=== PATIENT | male | born 1955 | race Caucasian/White ===

== ENCOUNTER 2023-11-10 14:50 | Observation (INO) | payer BC, MEDICARE, SELFPAY ==
[2023-11-10] VITALS (7 sets, daily range): BP systolic 141–158; BP diastolic 69–87; BMI 31.1; BMI 30.3
--- NOTE | 2023-11-10 08:22 | ED.GENMED ---
History of Present Illness
General
Chief Complaint: Abdominal Pain
Source: patient
Exam Limitations: none
Time Seen by Provider: 11/10/23 08:10
Nursing documentation reviewed up to this point in time: agreed with
History of Present Illness
History of Present Illness:
68 y/o M with h/o HTN, HLD, GERD
no chronic GERD meds
woke up at 3 am with severe dull epigastric pain nonradiating with 3-4 episodes of N/V
no hematemesis, no black stool
denies alcohol use
does take NSAIDS often
never had endoscopy
apparnetly at beg sept he had similar episode
saw his family doctor and was ordered outpatient CT but has not heard from his doctor
he is from [place] here becuase of recent family member's
denies cardiac disease
Past History
Past History
ED Past Medical History: GERD, HTN and Hypercholesterolemia
ED Past Surgical History: None
Social History
Tobacco: Non-smoker
Review of Systems
Review of Systems
Allergies reviewed?: Yes
All Other Systems: Not applicable
Phy Exam
Physical Exam
Physical Exam:
GENERAL: moaning, uncomfortable
EYE: pupils equal and reactive
NECK: Supple
ENT: o/p clr, mmm.
CARDIAC: Regular rate and rhythm .
LUNGS: Clear breath sounds bilaterally, no acute respiratory distress, no wheezes/rales/rhonchi
ABDOMEN: Soft, mild RUQ tenderness; no r/g, no cvat, normal bowel sounds
NEUROLOGICAL: Alert and oriented, no focal neuro deficits
SKIN: Warm and dry, skin intact.
MUSCULOSKELETAL: No edema, well perfused. neg gabo's sign
PSYCH: Normal and appropriate interaction.
Course
Orders/Labs/Results
Orders:
Orders
11/10/23 Breakfast
Low Fat
At Your Request: Full Participation
Does patient need a safe tray?: No
11/10/23 08:17
Electrocardiogram (*1) Urgent
Reason for Study: Abdominal Pain
11/10/23 08:18
EKG- Treatment ONCE
11/10/23 08:20
0.9% Sodium Chloride 1000 ml [Nss] 1,000 ml IV BOLUS
HYDROmorphone [Dilaudid] 1 mg IV NOW STA
Ondansetron Injectable [Zofran] 4 mg IV NOW STA
Pantoprazole [Protonix IV] 40 mg IV NOW STA
11/10/23 08:28
Complete Blood Count/With Diff Urgent
Comprehensive Metabolic Panel Urgent
Lipase Urgent
Magnesium Urgent
Troponin I Urgent
11/10/23 08:56
HYDROmorphone [Dilaudid] 0.5 mg IV NOW STA
US Abdomen Complete/Upper Urgent
Comment:
Reason For Exam: upper abd pain, vomiting; gallstones
11/10/23 10:38
Add On- LAB Urgent
Tests Added?: magnesium
11/10/23 11:37
Ampicillin/Sulbactam 3 G [Unasyn] 3 gm 0.9% Sodium Chloride 100 ml [Nss] 100 ml IV NOW
11/10/23 13:37
Potassium Chloride Powder [Klor-Con] 20 meq PO NOW STA
11/10/23 13:47
Admit Patient As Directed
Co-Sign Provider:
Level of Care: Observation services
Assign to:: Medical/Surgical
Physician / Group: Kenya
Diagnosis: Biliary colic
Code Status As Directed
Resuscitation Status: Full Code
Acetaminophen [Tylenol] 1,000 mg PO Q6HPRN PRN
Ibuprofen [Motrin] 600 mg PO Q6HPRN PRN
Ondansetron Injectable [Zofran] 4 mg IV Q6HPRN PRN
Oxycodone [Roxicodone] 10 mg PO Q4HPRN PRN
Oxycodone [Roxicodone] 5 mg PO Q4HPRN PRN
Activity As Directed
Activity Level: Out of Bed-Early Mobility
Anti-embolism (RUBIO) Hose As Directed
Type: Thigh high
Intake/ Output As Directed
Frequency: Per unit guidelines
Pneumatic Compression Sleeves As Directed
Type: Knee high
Vital Signs As Directed
Frequency: Per unit guidelines
PRN Pain Medication Management As Directed
May give lesser potent ordered pain med per pt: Yes
preference::
Protocol:: Medication orders for pain may be administered in a
manner that supports deferring to patient preference
when the pt is:
- Requesting an ordered lesser potent pain medication.
Least to most potent pain medications are defined
as: acetaminophen < NSAID < tramadol < opioids
(morphine, oxycodone, hydromorphone).
- Requesting a lesser dose of the same medication IF
ORDERED.
- Requesting a less intrusive route of administration
if both routes are prescribed by the provider (PO <
IV).
DX Deep Vein Thrombosis Video Routine
11/10/23 13:48
Rx Incentive Spirometry [RESP] Routine
Frequency: q1h while awake
# of times per hour: 10
11/10/23 14:00
Ampicillin/Sulbactam 1.5 G [Unasyn] 1.5 gm 0.9% Sodium Chloride [Nss] 50 ml IV Q6H
11/10/23 18:00
Enoxaparin Sodium [Lovenox] 40 mg SC QPM
11/11/23 Breakfast
NPO
Allow oral meds: No
Allow clear liquids: No
Basic Metabolic Panel IN AM
Complete Blood Count/No Diff IN AM
Lzyko-Zhnn-Sozdwom IN AM
11/11/23 08:00
Indapamide [Lozol] 2.5 mg PO DAILY
Abnormal Lab Results
11/10/23
08:28
MCV 79.8 L fL
(80.0-94.0)
MPV 10.8 H fL
(7.4-10.4)
Abs Immat Gran (auto) 0.1 H 10^3/uL
(0-0.05)
Absolute Neuts (auto) 8.1 H 10^3/uL
(1.4-6.5)
Neutrophils % 76.6 H %
(42.2-75.2)
Lymphocytes % 16.1 L %
(20.5-51.1)
Potassium 3.1 L mmol/L
(3.5-5.1)
BUN 29 H mg/dl
(9-20)
Glucose 163 H mg/dl
(70-99)
Calcium 10.4 H mg/dl
(8.4-10.2)
11/10/23 08:28
11/10/23 08:28
Vital Signs
Initial and Last Documented VS:
Initial Vital Signs
Temp Pulse Resp BP Pulse Ox
98.2 F 65 18 158/85 100
11/10/23 08:09 11/10/23 08:09 11/10/23 08:09 11/10/23 08:09 11/10/23 08:09
Last Documented Vital Signs
Temp Pulse Resp BP Pulse Ox
98.2 F 69 20 143/80 97
11/10/23 08:09 11/10/23 12:45 11/10/23 14:00 11/10/23 12:00 11/10/23 12:45
MDM/Problems Addressed
Differential Diagnosis Includes:
cholelithiasis/cholecystiis, ACS, pancreatitis, dissection, AAA
MDM/Problems Addressed:
68-year-old male with a history of hypertension and high cholesterol and GERD who is from out of town visiting had sudden onset of severe epigastric pain nonradiating this morning at 3 AM with several episodes of nausea and vomiting. Patient had a
similar event a couple of weeks ago but did not seek medical care immediately. He saw his doctor who ordered an outpatient CT which she was able to pull up on his patient portal and I reviewed that showing that he had cholelithiasis but otherwise a
normal aorta and no other findings other than a lesion on T12 that does need a workup. Patient was aware of this.
On exam the patient appeared dehydrated, was very uncomfortable, tender in his right upper quadrant with a positive Gomes sign, afebrile. His labs show a normal white count and normal LFTs and lipase. Ultrasound shows gallstones with possible
early acute cholecystitis with thickening of the gallbladder wall. He also had a positive Gomes sign.
unasyn
pain is improved but still present
await surgery consult
SURGERY WILL OBS
*Critical Care Note
Total Time (30-74mins, 75-104mins- exclusive of procedures): Not Applicable
ED Attending Note
-
Portions of this chart may have been created with voice recognition software.� Occasional wrong word or��sound alike� substitutions may have occurred due to the inherent limitations of voice recognition software.
Discharge Plan
Departure
Patient Disposition: Admit
Date of Disposition: 11/10/23
Time of Disposition: 13:37
Admit to: Med/Surg
Admit to doctor: kenya
Presentation/result/management discussed w/ accepting MD/DO: kenya
Patient with high blood pressure during this ER visit?: No
Condition: Fair
Covid-19: Not Applicable
Discharge Problem:
Cholelithiasis
Prescriptions:
No Action
indapamide 2.5 mg Tablet
2.5 mg PO DAILY
ibuprofen [Advil Liqui-Gel] 200 mg Capsule
200 mg PO Q6HPRN PRN (Reason: mild pain)
Referrals:
UNKNOWN - PT DOES,NOT KNOW [Family Provider] -
Interventions
Interventions:
*Risk Screen - Suicide Last Done: 11/10/23 08:09
*General Assessment Last Done: 11/10/23 08:09
*Neglect/Abuse Screening Last Done: 11/10/23 08:09
*ED COVID-19 Vaccine History Last Done: 11/10/23 08:17
IE-Mhckzy-Rtnyheezaq Assessment Last Done: 11/10/23 08:18
Discharge Date and Time
Print Language: SAUDI ARABIAN
[2023-11-10] MEDS: ZOFRAN 4 MG IV (08:24)
[2023-11-10] MEDS: PROTONIX IV 40 MG IV (08:27)
[2023-11-10] MEDS: NSS 1000 IV (08:27)
[2023-11-10] MEDS: DILAUDID 1 MG IV (08:27)
[2023-11-10 08:39] LABS: % Basophils 0.5 % (0-2); % Eosinophils 0.3 % (0-6); % Immature Granulocytes 0.5 % (0-0.5); % Lymphocytes 16.1 % (20.5-51.1); % Neutrophils 76.6 % (42.2-75.2); Absolute Basophils 0.1 10^3/uL (0-0.2); Absolute Immature Granulocytes 0.1 10^3/uL (0-0.05); Absolute Lymphocytes 1.7 10^3/uL (1.2-3.4); Absolute Monocytes 0.6 10^3/uL (0.1-0.6); Absolute Neutrophils 8.1 10^3/uL (1.4-6.5); Hematocrit 39.8 % (39.0-52.0); Hemoglobin 14.7 g/dL (13.0-18.0); Mean Corp Hgb Conc. 36.9 g/dL (33.0-37.0); Mean Corpuscular Hgb 29.5 pg (27.0-31.0); Mean Corpuscular Volume 79.8 fL (80.0-94.0); Mean Platelet Volume 10.8 fL (7.4-10.4); Nucleated Red Blood Cells % 0 % (-); Platelet Count 279 10^3/uL (130-400); Red Blood Cell Count 4.99 10^6/uL (4.70-6.10); Red Cell Dist. Width 12.7 % (11.5-14.5); White Blood Cell Count 10.6 10^3/uL (4.8-10.8)
[2023-11-10 08:50] LABS: ALT (SGPT) 25 U/L (0-50); AST (SGOT) 28 U/L (17-59); Alkaline Phosphatase 49 U/L (38-126); Blood Urea Nitrogen 29 mg/dl (9-20); Calcium 10.4 mg/dl (8.4-10.2); Carbon Dioxide 26 mmol/L (22-30); Chloride 98 mmol/L (98-107); Estimated Creatinine Clearance 71 ml/min; Glucose 163 mg/dl (70-99); Lipase 100 U/L (23-300); Potassium 3.1 mmol/L (3.5-5.1); Sodium 140 mmol/L (135-145); Total Bilirubin 0.7 mg/dl (0.2-1.3); Total Protein 7.3 g/dl (6.3-8.2); eGFR > 60.00
[2023-11-10 09:01] LABS: Troponin I < 0.012 ng/ml
[2023-11-10] MEDS: DILAUDID 0.5 MG IV (09:06)
[2023-11-10] MEDS: UNASYN IV ×2 (12:02→17:40)
[2023-11-10 13:20] LABS: Magnesium 1.7 mg/dl (1.6-2.3)
--- NOTE | 2023-11-10 13:51 | CON.GS ---
Consultation
-
Requesting Provider: Alberto
Performing Provider: Kenya
Reason for Consultation: Biliary colic vs ACC
Medical History
-
Chief Complaint: Abd pain
History of Present Illness:
68M with acute onset upper abd pain that began overnight last night. He ate wings for dinner. Localized to RUQ. No radiation. Denies f/c. Endorses n/v. Denies changes to urine/stool. Similar episode about a month ago that was self limited. Presently
he reports pain is improved bit not resolved. Last dose pain meds was IV dilaudid 5 hours ago. He lives in [place] and is in town temporarily to deal with his recently mother's estate. He was planning to return to [place] within the next few
days. He has a PCP there.
Past Medical History
Past Medical History: GERD, HTN and Hypercholesterolemia
Past Surgical History: Reviewed & Noncontributory
Social History
Tobacco: Non-Smoker
Alcohol: None
Drug: None
Family History
Family History: Reviewed & Noncontributory
Allergies / Home Medications
Allergy/AdvReac Type Severity Reaction Status Date / Time
No Known Allergies Allergy Unverified 11/10/23 08:16
�Medication �Instructions �Recorded �Confirmed �Type
ibuprofen 200 mg capsule (Advil 200 mg PO Q6HPRN PRN mild pain 11/10/23 11/10/23 History
Liqui-Gel)
indapamide 2.5 mg tablet 2.5 mg PO DAILY blood pressure 11/10/23 11/10/23 History
Review of Systems
-
A 10 point review of systems was completed, and was negative except as per HPI.
Physical Exam
Vital Signs
Temp Pulse Resp BP Pulse Ox
98.2 F 69 11 143/80 97
11/10/23 08:09 11/10/23 12:45 11/10/23 12:45 11/10/23 12:00 11/10/23 12:45
11/09/23 11/10/23 11/11/23
06:59 06:59 06:59
Actual Weight 90 kg
Body Mass Index (BMI) 31.1
Lab Results
11/10/23 08:28
11/10/23 08:
WBC 10.6 10^3/uL (4.8-10.8) 11/10/23:
Hgb 14.7 g/dL (13.0-18.0) 11/10/23:
Hct 39.8 % (39.0-52.0) 11/10/23:
Plt Count 279 10^3/uL (130-400) 11/10/23:
Abs Immat Gran (auto) 0.1 10^3/uL (0-0.05) H 11/10/23 08:
Neutrophils % 76.6 % (42.2-75.2) H 11/10/23:
Physical Exam
General: Well Developed, Well Nourished and No Apparent Distress
HEENT: Normocephalic and Anicteric
GI: Soft, Non Distended, Tender (mild ttp to RUQ without guarding) and Obese
Skin: Warm and Dry
Neuro: AO x 3
Psych: Calm
Data Reviewed
-
Ultrasound: Image Personally Visualized and interpreted, Report Reviewed by me and Discussed with Patient
Labs: Labs Reviewed by me and Discussed with Patient
Assessment / Plan
-
68M with biliary colic vs ACC
AFVSS, ttp, pain reportedly improving
No leukocytosis, there is mild neutrophilia
LFTs WNL
US with stones, gb distended, no GBWT, no PCF, CBD WNL, + sono Gomes
It is unclear if this is a self lmited episode of biliary colic or ACC
We had a long discussion about gallbladder disease and gallstones and he was offered CCY here today.
He prefers not to have surgery here since [place] of state and would like to f/u there
Given his pain persists, would admit for obs and give IV abx out of an abundance of caution
Start low fat diet and PO pain meds PRN
NPO at [place] in case he worsens overnight
If he feels well tomorrow he could go back to [place], would likely provide PO abx out of an abundance of caution at that point.
If he continues to have pain tomorrow or other concerning signs/symptoms arise, would plan for CCY here
[2023-11-10] MEDS: KLOR-CON 20 MEQ PO (16:33)
[2023-11-10] MEDS: ROXICODONE 5 MG PO ×2 (17:40→22:03)
[2023-11-10] MEDS: LOVENOX 40 MG SC (17:42)
--- NOTE | 2023-11-10 17:59 | PTCARENOTE ---
Patient received to 4 west awake alert oriented. Able to amb to stretcher . Oriented to room. Call brown in reach.
[2023-11-10] MEDS: TYLENOL 1000 MG PO (20:33)
[2023-11-11] VITALS (13 sets, daily range): BP systolic 115–158; BP diastolic 58–86
[2023-11-11] MEDS: UNASYN IV ×5 (00:18→23:07)
[2023-11-11] MEDS: LOZOL 2.5 MG PO (07:49)
--- NOTE | 2023-11-11 07:49 | W.PN.GS2 ---
Today's Communication / Plan
-
`
Assessment / Plan
-
Assessment: 68 y/o male with ACC
persistent symptoms despite initial attempt at non-op management
offered cholecystectomy which pt was in agreement with
lap adriana with possible cholangiogram reviewed in detail including operative technique, alternative tx options, benefits and potential risks such as but not limited to bleeding, infectious or wound related complications and iatrogenic injury to
surrounding structures (bile leak, bile ducts, etc). discussed typical post op recovery. any of the patients concerns were fully addressed and informed consent was obtained.
Plan: OR today for lap adriana with possible IOC
otherwise continue current care
Subjective Data
-
Date of Service: November 11, 2023
pt seen and examined
persistent RUQ pain and tenderness reported
anorexia as well, no N/V
Objective Data
-
Intake and Output
11/10/23 11/11/23 11/12/23
06:59 06:59 06:59
Intake Total 60 / 60
Balance 60 / 60
Intake:
IV piggybacks 60 / 60
Other:
Number of approximated MODERATE 2
amounts of urine
Vital Signs
Temp Pulse Resp BP Pulse Ox
99.7 F 73 19 136/73 94
11/11/23 07:43 11/11/23 07:43 11/11/23 07:43 11/11/23 07:43 11/11/23 07:43
Calcium 10.4 mg/dl (8.4-10.2) H 11/10/23 08:28
Magnesium 1.7 mg/dl (1.6-2.3) 11/10/23 08:28
Total Bilirubin 0.7 mg/dl (0.2-1.3) 11/10/23 08:28
AST 28 U/L (17-59) 11/10/23 08:28
ALT 25 U/L (0-50) 11/10/23 08:28
Alkaline Phosphatase 49 U/L (38-126) 11/10/23 08:28
Total Protein 7.3 g/dl (6.3-8.2) 11/10/23 08:28
Albumin 5.0 g/dl (3.5-5.0) 11/10/23 08:28
Physical Exam
-
NAD but uncomfortable appearing
ABD: soft, ND, TTP localizing to RUQ and epigastrium with voluntary guarding
--- NOTE | 2023-11-11 08:23 | W.SUR.PREOP ---
Pre-Operative Surgical Note
-
I have examined this patient prior to the performance of the scheduled procedure.
The patient's condition is unchanged from the time of the current History and
Physical and the patient is able to undergo the scheduled procedure.
[2023-11-11 08:39] LABS: Hematocrit 40.2 % (39.0-52.0); Hemoglobin 14.5 g/dL (13.0-18.0); Mean Corp Hgb Conc. 36.1 g/dL (33.0-37.0); Mean Corpuscular Hgb 29.4 pg (27.0-31.0); Mean Corpuscular Volume 81.4 fL (80.0-94.0); Platelet Count 232 10^3/uL (130-400); Red Blood Cell Count 4.94 10^6/uL (4.70-6.10); Red Cell Dist. Width 13.2 % (11.5-14.5); White Blood Cell Count 14.2 10^3/uL (4.8-10.8)
[2023-11-11 09:24] LABS: ALT (SGPT) 22 U/L (0-50); AST (SGOT) 24 U/L (17-59); Albumin 4.5 g/dl (3.5-5.0); Alkaline Phosphatase 37 U/L (38-126); Blood Urea Nitrogen 19 mg/dl (9-20); Calcium 9.5 mg/dl (8.4-10.2); Carbon Dioxide 28 mmol/L (22-30); Chloride 95 mmol/L (98-107); Direct Bilirubin 0.3 mg/dl (0.0-0.4); Estimated Creatinine Clearance 85 ml/min; Glucose 135 mg/dl (70-99); Sodium 135 mmol/L (135-145); Total Bilirubin 1.8 mg/dl (0.2-1.3); Total Protein 6.9 g/dl (6.3-8.2); eGFR > 60.00
--- NOTE | 2023-11-11 12:39 | W.IMMPOSTOP ---
Addendum entered and electronically signed by Pancho Lizarraga MD 11/11/23 12:55:
#[id number]
Original Note:
Surgical Immed Post Op Note
-
Primary Surgeon: Elham
Assisting Surgeon: Jose CHING
Pre-op Diagnosis: Acute calculus cholecystitis
Post-op Diagnosis: Acute on chronic calculous cholecystitis
Procedure Performed: Lap Llai
Anesthesia Type: GETA + 0.25%Marcaine
Specimen / Cultures: Gallbladder
Estimated Blood Loss: 24 mL
Complications: None immediate
Operative Findings: Chronic omental adhesions surrounding gallbladder as well as acute inflammatory peel. Tensely distended gallbladder with patchy gangrenous changes particularly of the posterior gallbladder wall. Cystic duct isolated and
controlled with Endo KANDI purple 30 mm stapler. Cholangiogram not performed due to short cystic duct and surrounding inflammatory changes which would increase challenges of cystic duct control but critical view of safety achieved prior to dividing.
Plan: Advance diet as tolerated
Routine postoperative supportive care
Continue IV antibiotics overnight and anticipate discharge on 5-day course of Augmentin
Left message on daughter's voicemail
--- NOTE | 2023-11-11 16:01 | CM ---
Addendum entered by Yudy Lester 11/11/23 16:08:
Patient lives independently in a two story home, two steps to enter. Denies DME, VN, or SNF. Patient PCP Tomás Yang, pharmacy [facility], confirms prescription coverage. Patient denies any insecurities at home. CM will continue to follow for
all discharge planning neds.
Plan; home no needs likely.
Original Note:
Patient seen bedside, initial assessment completed. Patient originally lives in [place]
OBS refused to sign, placed in chart.
[2023-11-11] MEDS: LOVENOX 40 MG SC (17:24)
[2023-11-11] MEDS: DILAUDID 0.5 MG IV (17:37)
[2023-11-12 03:30] VITALS: BP 139/75
[2023-11-12] MEDS: UNASYN IV ×2 (06:19→13:16)
[2023-11-12] MEDS: LOZOL 2.5 MG PO (07:51)
[2023-11-12] MEDS: TYLENOL 1000 MG PO (08:01)
[2023-11-12 08:05] VITALS: BP 146/78
--- NOTE | 2023-11-12 09:31 | W.PN.GS2 ---
Addendum entered and electronically signed by Clemente Restrepo MD 11/12/23 10:06:
I saw and examined the patient independently.
The resident DC home today with Augmentin's note was reviewed and I agree with the note, assessment and plan except where noted below.
Comment: DC home today
Original Note:
Today's Communication / Plan
-
Will d/c on PO oxy and Augmentin for 5d course. F/u with Dr. Lizarraga before returning home to [place].
Assessment / Plan
-
68 y/o male with acute cholecystitis
#Acute cholecystitis s/p Lap Lali POD1
- Tolerating low fat diet
- OK from surgical perspective to DC
- D/c on PO Augmentin for 5 day course & PO Oxycodone for pain management
- Follow up with Dr. Lizarraga within the week prior to driving back to [place]
Subjective Data
-
No acute events overnight. Still requiring pain medication. No new N/V. Passing gas.
Objective Data
-
Intake and Output
11/11/23 11/12/23 11/13/23
06:59 06:59 06:59
Intake Total 60 / 60 1360 / 1360
Balance 60 / 60 1360 / 1360
Intake:
Oral fluids 1020 / 1020
IV fluids (Total) 100 / 100
Normosol 100 / 100
IV piggybacks 60 / 60 240 / 240
Other:
Number of approximated MODERATE 2 2
amounts of urine
Vital Signs
Temp Pulse Resp BP Pulse Ox
99.1 F 83 18 146/78 93
11/12/23 08:05 11/12/23 08:05 11/12/23 08:05 11/12/23 08:05 11/12/23 08:05
Lab Results
11/11/23 08:05
11/11/23 08:05
Calcium 9.5 mg/dl (8.4-10.2) 11/11/23 08:05
Magnesium 1.7 mg/dl (1.6-2.3) 11/10/23 08:28
Total Bilirubin 1.8 mg/dl (0.2-1.3) H D 11/11/23 08:05
Direct Bilirubin 0.3 mg/dl (0.0-0.4) 11/11/23 08:05
AST 24 U/L (17-59) 11/11/23 08:05
ALT 22 U/L (0-50) 11/11/23 08:05
Alkaline Phosphatase 37 U/L (38-126) L 11/11/23 08:05
Total Protein 6.9 g/dl (6.3-8.2) 11/11/23 08:05
Albumin 4.5 g/dl (3.5-5.0) 11/11/23 08:05
Physical Exam
-
General: NAD
Abdominal: Soft, mildly distended, mildly tender to palpation. No rebound or guarding. Port incisions are clean, healing well, without drainage, erythema, induration.
[2023-11-12] MEDS: FLUAD (65 yr+) 2024-2025 FORMULA 0.5 ML IM (10:28)
--- NOTE | 2023-11-12 10:38 | CM ---
Patient seen bedside, reports no needs upon discharge. Patient reports he will call family for transport. CM will continue to follow for all discharge planning needs.
Plan; home no needs.
[2023-11-12 11:11] VITALS: BP 120/75
[2023-11-12 15:21] VITALS: BP 149/78
== END 2023-11-12 16:25 | disposition home or self-care (01) ==
LOC: 4 WEST ACU 14:50
PROVIDERS: Physician Assistant; ADMITTING PHYSICIAN Surgery; EMERGENCY PHYSICIAN Student in an Organized Health Care Education/Training Program
DX: K80.12 Calculus of gallbladder with acute and chronic cholecystitis without obstruction (principal); K82.A1 Gangrene of gallbladder in cholecystitis; K66.0 Peritoneal adhesions (postprocedural) (postinfection); E80.6 Other disorders of bilirubin metabolism; R10.10 Upper abdominal pain, unspecified; I10 Essential (primary) hypertension; K21.9 Gastro-esophageal reflux disease without esophagitis; E78.5 Hyperlipidemia, unspecified; E86.0 Dehydration; K76.0 Fatty (change of) liver, not elsewhere classified; N28.1 Cyst of kidney, acquired; Z23 Encounter for immunization
CPT/HCPCS: 47562; 88304; 76700; 80053; 82248; 83690; 83735; 84484; 85025; 85027; 93005; 96361; 96365; 96375; 96376; 99285; G0378